=== PATIENT | female | born 1945 ===

== ENCOUNTER 2023-02-01 05:20 | Day surgery (SDC) | payer OTHER ==
[~2023-02-01 05:20] MED LIST: ATOR PO; DAFLONEX-XL 11300 MG PO; IRBESARTAN-HCT1 EAC1 PO; METOP PO; MULTIVIT PO
[2023-02-01] MEDS ORDERED: MACROBID 100 M100 MG PO (10:03)
[2023-02-01] MEDS ORDERED: TRAM1TAB98 PO (10:03)
== END 2023-02-01 12:20 | disposition home or self-care (01) ==
LOC: CIR.AMB 05:20
PROVIDERS: ATTEND Obstetrics & Gynecology Gynecology
DX: N81.11 Cystocele, midline (principal); N81.5 Vaginal enterocele; N81.6 Rectocele; Z88.0 Allergy status to penicillin; Z20.822 Contact with and (suspected) exposure to COVID-19; I10 Essential (primary) hypertension; Z87.891 Personal history of nicotine dependence